=== PATIENT | male | born 1955 | race Caucasian/White ===

== ENCOUNTER 2023-06-11 12:37 | Emergency (ER) | payer MEDICARE, BC ==
[~2023-06-11] VITALS: Ht 172.7 cm; Wt 74.8 kg
[2023-06-11 12:45] VITALS: BP 105/66; PULSE 96; RESP 16; TEMP 98; O2SAT 99
[2023-06-11 14:43] VITALS: BP 102/76; PULSE 85; RESP 18; TEMP 98
[2023-06-11 14:46] VITALS: O2SAT 100
[2023-06-12] MEDS ORDERED: LANS30EC68 PO (12:22)
[2023-06-12] MEDS ORDERED: OXYB10TA2 PO (12:22)
[2023-06-12] MEDS ORDERED: OXYB-118 PO (12:22)
[2023-06-12] MEDS ORDERED: ALFU10TE10 PO (12:22)
[2023-06-12] MEDS ORDERED: TAMS0.4C97 PO (12:22)
[2023-06-12] MEDS ORDERED: ZOLP5TAB7 PO (12:22)
[2023-06-12] MEDS ORDERED: NAPR-1560 PO (12:22)
[2023-06-12] MEDS ORDERED: ARIP30TA12 PO (12:22)
[2023-06-12] MEDS ORDERED: AZIT250T11 PO (12:22)
[2023-06-12] MEDS ORDERED: MIRA25TE PO (12:22)
[2023-06-12] MEDS ORDERED: [UNRECOGNIZED DRUG - CODE] PO (12:22)
[2023-06-12] MEDS ORDERED: DEXA6TAB2 PO (12:22)
[2023-06-12] MEDS ORDERED: PARO20TA13 PO (12:22)
== END 2023-06-11 14:43 | disposition home or self-care (01) ==
LOC: MED 12:37
DX: K94.23 Gastrostomy malfunction (principal); Z98.890 Other specified postprocedural states
CPT/HCPCS: 36600; 43762; 82803; 99284

== ENCOUNTER 2023-06-12 08:39 | Inpatient (IN) | payer BC, MEDICARE ==
[~2023-06-12] VITALS: Ht 175.3 cm; Wt 74.8 kg
[2023-06-12 08:44] VITALS: BP 112/68; PULSE 91; RESP 18; TEMP 98; O2SAT 93
[2023-06-12 09:02] VITALS: O2SAT 93
[2023-06-12 09:29] LABS: BASOPHILS % (AUTO) 0.3 % (0.0-2.0); EOSINOPHILS % (AUTO) 0.1 % (0.0-4.0); HEMATOCRIT 35.1 % (36-52); HEMOGLOBIN 11.3 g/dL (12.0-18.0); LYMPHOCYTES # (AUTO) 0.7 K/uL (2.0-11.5); LYMPHOCYTES % (AUTO) 10.1 % (20.5-51.1); MEAN CORPUSCULAR HEMOGLOBIN 27 pg (27-31); MEAN CORPUSCULAR HGB CONC 32 g/dL (33-37); MEAN CORPUSCULAR VOLUME 83.2 fL (80-94); MONOCYTES # (AUTO) 0.4 K/uL (0.8-1.0); MONOCYTES % (AUTO) 6.1 % (1.7-9.3); NEUTROPHILS # (AUTO) 5.7 K/uL (1.8-7.7); NEUTROPHILS % (AUTO) 83.4 % (42.2-75.2); PLATELET COUNT (AUTO) 164 K/uL (140-450); RED BLOOD CELL COUNT(AUTO) 4.22 MIL/uL (4.20-6.10); RED CELL DISTRIBUTION WIDTH 16.9 % (11.6-13.7); WHITE BLOOD COUNT (AUTO) 6.9 K/uL (4.8-10.8)
[2023-06-12 09:53] LABS: ALANINE AMINOTRANSFERASE 19 U/L (12-78); ALBUMIN 2.2 g/dL (3.4-5.0); ALKALINE PHOSPHATASE 60 U/L (50-136); ANION GAP 12.9 (8-16); ASPARTATE AMINOTRANSFERASE 14 U/L (15-37); CALCIUM 8.7 mg/dL (8.5-10.1); CARBON DIOXIDE 28.4 mmol/L (21-32); CHLORIDE 106 mmol/L (98-107); CREATININE 0.9 mg/dL (0.6-1.3); GFR ARICAN-AMERICAN 109 mL/min (>90); GFR NON ARICAN-AMERICAN 90 mL/min (>90); GLUCOSE 116 mg/dL (74-106); POTASSIUM 4.3 mmol/L (3.5-5.1); SODIUM SERUM 143 mmol/L (136-145); TOTAL BILIRUBIN 1.4 mg/dL (0.0-1.0); UREA NITROGEN, BLOOD 25 mg/dL (7-18)
[2023-06-12 10:04] VITALS: O2SAT 94
[2023-06-12 10:20] LABS: BLOOD GAS HCO3 24.4 mmol/L (22-26); BLOOD GAS O2 SAT% 97.4 % (92.0-98.5); BLOOD GAS PO2 86.7 mmHg (75-100)
[2023-06-12] MEDS ORDERED: AZITHROMYCIN 500 MG in DEXTROSE 5% 250 ML IV ONE (10:55)
[2023-06-12] MEDS ORDERED: cefTRIAXone 1,000 MG VIAL ONE (11:01)
[2023-06-12] MEDS ORDERED: MIRA25TE PO (12:22)
[2023-06-12] MEDS ORDERED: ALFU10TE10 PO (12:22)
[2023-06-12] MEDS ORDERED: ARIP30TA12 PO (12:22)
[2023-06-12] MEDS ORDERED: DEXA6TAB2 PO (12:22)
[2023-06-12] MEDS ORDERED: PARO20TA13 PO (12:22)
[2023-06-12] MEDS ORDERED: OXYB10TA2 PO (12:22)
[2023-06-12] MEDS ORDERED: LANS30EC68 PO (12:22)
[2023-06-12] MEDS ORDERED: AZIT250T11 PO (12:22)
[2023-06-12] MEDS ORDERED: NAPR-1560 PO (12:22)
[2023-06-12] MEDS ORDERED: ZOLP5TAB7 PO (12:22)
[2023-06-12] MEDS ORDERED: [UNRECOGNIZED DRUG - CODE] PO (12:22)
[2023-06-12] MEDS ORDERED: OXYB-118 PO (12:22)
[2023-06-12] MEDS ORDERED: TAMS0.4C97 PO (12:22)
[2023-06-12] MEDS ORDERED: HYDROcodone/APAP 7.5/325 MG 1 TAB PO PRN (12:35)
[2023-06-12] MEDS ORDERED: ONDANSETRON 4 MG/2 ML VIAL IVP PRN (12:35)
[2023-06-12] MEDS ORDERED: NACL 0.9% 1,000 ML IV SCH (12:35)
[2023-06-12] MEDS ORDERED: ZOLPIDEM 5 MG TAB PO PRN (12:35)
[2023-06-12] MEDS ORDERED: ACETAMINOPHEN 650 MG/20.3 ML UDC PO PRN (12:45)
[2023-06-12] MEDS ORDERED: AZITHROMYCIN 500 MG INJ VIAL IV ONE (13:27)
[2023-06-12 14:00] LABS: INR 1.16 (0.8-1.2); PARTIAL THROMBOPLASTIN TIME 27.6 secs (22-35.6); PROTHROMBIN TIME 12.1 secs (10.8-13.4)
[2023-06-12 14:08] LABS: LACTIC ACID 1.1 mmol/L (0.4-2.0)
[2023-06-12 20:02] LABS: CHOL/HDL RATIO 3.6 (1-4.5); FREE T4 (FREE THYROXINE) 1.02 ng/dL (0.76-1.46); THYROID STIMULATING HORMONE 0.49 uIU/mL (0.34-3.74)
[2023-06-12] MEDS ORDERED: MIDODRINE 5 MG TAB PO ONE (21:05)
[2023-06-12] MEDS ORDERED: MIDODRINE 5 MG TAB ONE (21:14)
[2023-06-12] MEDS: DOCUSATE 100 MG/10 ML UDC PO SCH (21:18)
[2023-06-12] MEDS: NAPROXEN 500 MG TAB PO SCH (22:40)
[2023-06-13 08:07] LABS: BASOPHILS % (AUTO) 0.5 % (0.0-2.0); EOSINOPHILS # (AUTO) 0.1 K/uL (0-0.4); EOSINOPHILS % (AUTO) 1.4 % (0.0-4.0); HEMATOCRIT 28.9 % (36-52); HEMOGLOBIN 9.3 g/dL (12.0-18.0); LYMPHOCYTES # (AUTO) 1.2 K/uL (2.0-11.5); LYMPHOCYTES % (AUTO) 20.3 % (20.5-51.1); MEAN CORPUSCULAR HEMOGLOBIN 27 pg (27-31); MEAN CORPUSCULAR HGB CONC 32 g/dL (33-37); MEAN CORPUSCULAR VOLUME 83.9 fL (80-94); MONOCYTES # (AUTO) 0.5 K/uL (0.8-1.0); MONOCYTES % (AUTO) 8.4 % (1.7-9.3); NEUTROPHILS % (AUTO) 69.4 % (42.2-75.2); PLATELET COUNT (AUTO) 129 K/uL (140-450); RED BLOOD CELL COUNT(AUTO) 3.44 MIL/uL (4.20-6.10); RED CELL DISTRIBUTION WIDTH 16.3 % (11.6-13.7); WHITE BLOOD COUNT (AUTO) 5.7 K/uL (4.8-10.8)
[2023-06-13] MEDS ORDERED: DEXT 5% / NACL 0.9% 1,000 ML IV ONE (08:20)
[2023-06-13 08:33] LABS: ANION GAP 12.2 (8-16); CALCIUM 8.1 mg/dL (8.5-10.1); CARBON DIOXIDE 27.7 mmol/L (21-32); CREATININE 0.7 mg/dL (0.6-1.3); POTASSIUM 3.9 mmol/L (3.5-5.1)
[2023-06-13 08:39] LABS: MAGNESIUM 2.3 mg/dL (1.8-2.4); PHOSPHORUS 3.5 mg/dL (2.5-4.9)
[2023-06-13] MEDS ORDERED: ARIPIPRAZOLE PO SCH (09:00)
[2023-06-13] MEDS ORDERED: LANSOPRAZOLE 30 MG CAPDR PO SCH (09:00)
[2023-06-13] MEDS: AZITHROMYCIN 250 MG TAB PO SCH ×2 (09:00→10:41)
[2023-06-13] MEDS ORDERED: NON-FORMULARY ITEM (Mirabegron (Myrbetriq) 1 TAB) PO SCH (09:00)
[2023-06-13] MEDS: TAMSULOSIN 0.4 MG CAP PO SCH ×3 (09:00→10:52)
[2023-06-13] MEDS: NAPROXEN 500 MG TAB PO SCH ×3 (09:00→10:49)
[2023-06-13] MEDS ORDERED: OXYBUTYNIN CHLORIDE PO SCH (09:00)
[2023-06-13] MEDS: DOCUSATE 100 MG/10 ML UDC PO SCH ×3 (09:00→10:50)
[2023-06-13] MEDS: OXYBUTYNIN 5 MG TAB PO SCH ×3 (09:00→10:51)
[2023-06-13] MEDS: PARoxetine 20 MG TAB PO SCH ×2 (09:00→10:42)
[2023-06-13] MEDS ORDERED: NON-FORMULARY ITEM (Alfuzosin HCl (Alfuzosin HCl ER) 1 TAB) PO SCH (09:00)
[2023-06-13] MEDS: ARIPiprazole 10 MG TAB PO SCH ×3 (09:00→10:51)
[2023-06-13] MEDS ORDERED: cefTRIAXone 1,000 MG VIAL ONE ×2 (09:09→10:11)
[2023-06-13] MEDS: PANTOPRAZOLE 40 MG INJ VIAL IVP SCH (10:36)
[2023-06-13 12:00] VITALS: PULSE 54; RESP 18; TEMP 98; O2SAT 96
[2023-06-13 13:14] LABS: APPEARANCE,URINE CLEAR (CLEAR); BILIRUBIN,URINE 1+ (NEGATIVE); BLOOD, URINE 3+ (NEGATIVE); COLOR,URINE YELLOW (YELLOW); LEUKOCYTE ESTERASE ,URINE NEGATIVE (NEGATIVE); NITRITE, URINE NEGATIVE (NEGATIVE); PROTEIN,URINE 2+ (NEGATIVE); UGLUCOSE TRACE (NEGATIVE); UROBILINOGEN,URINE >=8.0 EU/dL (0.2 - 1)
[2023-06-13 13:35] LABS: BACTERIA,URINE 2+ /HPF (None Seen); ICTOTEST NEGATIVE (NEGATIVE); RBC,URINE 50-80 /HPF (0-5); SQUAMOUS EPITHELIAL CELL,UR 4-10 (MOD) /LPF (0-3 (FEW)); WBC,URINE 0-5 /HPF (0-5)
[2023-06-13 13:36] LABS: AMPHETAMINE, URINE NEGATIVE ng/ml (NEG <=1000); BARBITURATE, URINE NEGATIVE ng/ml (NEG <=200); BENZODIAZEPINE, URINE NEGATIVE ng/mL (NEG <=200); CANNABINOID, URINE NEGATIVE ng/mL (NEG <=50); COCAINE, URINE NEGATIVE ng/mL (NEG <=300); OPIATE, URINE NEGATIVE ng/mL (NEG <=2000); PHENCYCLIDINE SCREEN,URINE NEGATIVE ng/mL (NEG <=25)
[2023-06-13 16:00] VITALS: PULSE 58; PULSE 61; RESP 18; TEMP 97.8; O2SAT 94
[2023-06-13 20:00] VITALS: PULSE 17; PULSE 65; RESP 17; TEMP 97.3; O2SAT 94
[2023-06-14] VITALS (8 sets, daily range): BP systolic 109–128; BP diastolic 58–68; PULSE 17–74; RESP 17–20; TEMP 96.7–98; O2SAT 94–96
[2023-06-14 05:59] LABS: BASOPHILS % (AUTO) 0.2 % (0.0-2.0); EOSINOPHILS # (AUTO) 0.1 K/uL (0-0.4); EOSINOPHILS % (AUTO) 1.2 % (0.0-4.0); HEMATOCRIT 29.3 % (36-52); HEMOGLOBIN 9.4 g/dL (12.0-18.0); LYMPHOCYTES # (AUTO) 1.3 K/uL (2.0-11.5); LYMPHOCYTES % (AUTO) 16.3 % (20.5-51.1); MEAN CORPUSCULAR HEMOGLOBIN 27 pg (27-31); MEAN CORPUSCULAR HGB CONC 32 g/dL (33-37); MEAN CORPUSCULAR VOLUME 84.1 fL (80-94); MONOCYTES # (AUTO) 0.5 K/uL (0.8-1.0); MONOCYTES % (AUTO) 5.7 % (1.7-9.3); NEUTROPHILS # (AUTO) 6.1 K/uL (1.8-7.7); NEUTROPHILS % (AUTO) 76.6 % (42.2-75.2); PLATELET COUNT (AUTO) 136 K/uL (140-450); RED BLOOD CELL COUNT(AUTO) 3.48 MIL/uL (4.20-6.10); RED CELL DISTRIBUTION WIDTH 16.4 % (11.6-13.7)
[2023-06-14 06:30] LABS: MAGNESIUM 2.1 mg/dL (1.8-2.4); PHOSPHORUS 3.8 mg/dL (2.5-4.9)
[2023-06-14 06:33] LABS: ANION GAP 14.5 (8-16); CALCIUM 8.9 mg/dL (8.5-10.1); CARBON DIOXIDE 26.1 mmol/L (21-32); CREATININE 0.7 mg/dL (0.6-1.3); POTASSIUM 3.6 mmol/L (3.5-5.1)
[2023-06-14] MEDS: DOCUSATE 100 MG/10 ML UDC PO SCH ×2 (09:40→21:22)
[2023-06-14] MEDS: AZITHROMYCIN 250 MG TAB PO SCH (09:41)
[2023-06-14] MEDS: NAPROXEN 500 MG TAB PO SCH ×2 (09:41→21:21)
[2023-06-14] MEDS: PARoxetine 20 MG TAB PO SCH (09:41)
[2023-06-14] MEDS: PANTOPRAZOLE 40 MG INJ VIAL IVP SCH (09:41)
[2023-06-14] MEDS: DEXT 5% /NACL 0.9% 1,000 ML IV SCH (22:13)
[2023-06-15] VITALS (8 sets, daily range): BP systolic 102–129; BP diastolic 59–85; PULSE 59–85; RESP 16–20; TEMP 97–98.2; O2SAT 95–98
[2023-06-15 05:53] LABS: BASOPHILS % (AUTO) 0.2 % (0.0-2.0); EOSINOPHILS # (AUTO) 0.1 K/uL (0-0.4); EOSINOPHILS % (AUTO) 1.4 % (0.0-4.0); HEMOGLOBIN 9.1 g/dL (12.0-18.0); LYMPHOCYTES # (AUTO) 1.4 K/uL (2.0-11.5); MEAN CORPUSCULAR HEMOGLOBIN 27 pg (27-31); MEAN CORPUSCULAR HGB CONC 32 g/dL (33-37); MEAN CORPUSCULAR VOLUME 83.9 fL (80-94); MONOCYTES # (AUTO) 0.6 K/uL (0.8-1.0); MONOCYTES % (AUTO) 6.9 % (1.7-9.3); NEUTROPHILS # (AUTO) 5.9 K/uL (1.8-7.7); NEUTROPHILS % (AUTO) 74.5 % (42.2-75.2); PLATELET COUNT (AUTO) 134 K/uL (140-450); RED BLOOD CELL COUNT(AUTO) 3.34 MIL/uL (4.20-6.10); RED CELL DISTRIBUTION WIDTH 16.1 % (11.6-13.7)
[2023-06-15 06:39] LABS: PHOSPHORUS 3.8 mg/dL (2.5-4.9)
[2023-06-15 06:56] LABS: ANION GAP 13.5 (8-16); CALCIUM 8.2 mg/dL (8.5-10.1); CREATININE 0.6 mg/dL (0.6-1.3); POTASSIUM 3.5 mmol/L (3.5-5.1)
[2023-06-15] MEDS: NAPROXEN 500 MG TAB PO SCH ×2 (09:46→20:33)
[2023-06-15] MEDS: OXYBUTYNIN 5 MG TAB PO SCH (09:46)
[2023-06-15] MEDS: DOCUSATE 100 MG/10 ML UDC PO SCH ×2 (09:46→20:33)
[2023-06-15] MEDS: TAMSULOSIN 0.4 MG CAP PO SCH (09:46)
[2023-06-15] MEDS: PARoxetine 20 MG TAB PO SCH (09:50)
[2023-06-15] MEDS: PANTOPRAZOLE 40 MG INJ VIAL IVP SCH (09:50)
[2023-06-15] MEDS: AZITHROMYCIN 250 MG TAB PO SCH (09:50)
[2023-06-15] MEDS: ARIPiprazole 10 MG TAB PO SCH (09:51)
[2023-06-15] MEDS: DEXT 5% /NACL 0.9% 1,000 ML IV SCH (12:31)
[2023-06-16] MEDS: DEXT 5% /NACL 0.9% 1,000 ML IV SCH ×2 (02:52→15:57)
[2023-06-16 07:13] LABS: ANION GAP 10.7 (8-16); CALCIUM 8.6 mg/dL (8.5-10.1); CARBON DIOXIDE 27.8 mmol/L (21-32); CREATININE 0.7 mg/dL (0.6-1.3); POTASSIUM 3.5 mmol/L (3.5-5.1)
[2023-06-16 07:32] LABS: MAGNESIUM 1.9 mg/dL (1.8-2.4); PHOSPHORUS 3.2 mg/dL (2.5-4.9)
[2023-06-16 07:48] VITALS: PULSE 62; RESP 19; O2SAT 99
[2023-06-16 07:49] VITALS: PULSE 63; RESP 19; O2SAT 99
[2023-06-16 07:50] VITALS: TEMP 97.8
[2023-06-16 08:00] VITALS: BP 111/59; PULSE 54; RESP 18; TEMP 97.8; O2SAT 95
[2023-06-16 08:48] LABS: BASOPHILS % (AUTO) 0.5 % (0.0-2.0); EOSINOPHILS # (AUTO) 0.1 K/uL (0-0.4); EOSINOPHILS % (AUTO) 1.9 % (0.0-4.0); LYMPHOCYTES # (AUTO) 1.2 K/uL (2.0-11.5); MEAN CORPUSCULAR HEMOGLOBIN 27 pg (27-31); MEAN CORPUSCULAR HGB CONC 32 g/dL (33-37); MEAN CORPUSCULAR VOLUME 83.6 fL (80-94); MONOCYTES # (AUTO) 0.4 K/uL (0.8-1.0); MONOCYTES % (AUTO) 5.6 % (1.7-9.3); NEUTROPHILS # (AUTO) 6.1 K/uL (1.8-7.7); PLATELET COUNT (AUTO) 124 K/uL (140-450); RED BLOOD CELL COUNT(AUTO) 3.35 MIL/uL (4.20-6.10); RED CELL DISTRIBUTION WIDTH 16.2 % (11.6-13.7); WHITE BLOOD COUNT (AUTO) 7.9 K/uL (4.8-10.8)
[2023-06-16] MEDS: AZITHROMYCIN 250 MG TAB PO SCH (09:52)
[2023-06-16] MEDS: PARoxetine 20 MG TAB PO SCH (09:53)
[2023-06-16] MEDS: TAMSULOSIN 0.4 MG CAP PO SCH (09:53)
[2023-06-16] MEDS: ARIPiprazole 10 MG TAB PO SCH (09:53)
[2023-06-16] MEDS: DOCUSATE 100 MG/10 ML UDC PO SCH ×2 (09:53→20:18)
[2023-06-16] MEDS: PANTOPRAZOLE 40 MG INJ VIAL IVP SCH (09:54)
[2023-06-16] MEDS: NAPROXEN 500 MG TAB PO SCH ×2 (09:54→20:18)
[2023-06-16] MEDS: OXYBUTYNIN 5 MG TAB PO SCH (09:56)
[2023-06-16 16:00] VITALS: BP 111/57; PULSE 55; RESP 18; TEMP 97.3; O2SAT 95
[2023-06-16 20:00] VITALS: PULSE 57; RESP 16; RESP 18; TEMP 97.1; O2SAT 95
[2023-06-17] VITALS (7 sets, daily range): BP systolic 96–100; BP diastolic 57–60; PULSE 57–60; RESP 17–19; TEMP 96.2–98.2; O2SAT 95–99
[2023-06-17] MEDS: DEXT 5% /NACL 0.9% 1,000 ML IV SCH ×2 (06:56→20:53)
[2023-06-17 07:16] LABS: BASOPHILS # (AUTO) 0.1 K/uL (0.00-0.22); EOSINOPHILS # (AUTO) 0.2 K/uL (0-0.4); EOSINOPHILS % (AUTO) 2.6 % (0.0-4.0); HEMOGLOBIN 9.7 g/dL (12.0-18.0); LYMPHOCYTES # (AUTO) 1.4 K/uL (2.0-11.5); LYMPHOCYTES % (AUTO) 20.6 % (20.5-51.1); MEAN CORPUSCULAR HEMOGLOBIN 27 pg (27-31); MEAN CORPUSCULAR HGB CONC 32 g/dL (33-37); MEAN CORPUSCULAR VOLUME 84.6 fL (80-94); MONOCYTES # (AUTO) 0.4 K/uL (0.8-1.0); MONOCYTES % (AUTO) 5.6 % (1.7-9.3); NEUTROPHILS # (AUTO) 4.9 K/uL (1.8-7.7); NEUTROPHILS % (AUTO) 70.2 % (42.2-75.2); PLATELET COUNT (AUTO) 127 K/uL (140-450); RED BLOOD CELL COUNT(AUTO) 3.54 MIL/uL (4.20-6.10); RED CELL DISTRIBUTION WIDTH 16.1 % (11.6-13.7)
[2023-06-17 07:55] LABS: MAGNESIUM 1.8 mg/dL (1.8-2.4); PHOSPHORUS 3.2 mg/dL (2.5-4.9)
[2023-06-17 08:00] LABS: ANION GAP 11.9 (8-16); CALCIUM 8.2 mg/dL (8.5-10.1); CARBON DIOXIDE 24.4 mmol/L (21-32); CREATININE 0.6 mg/dL (0.6-1.3); POTASSIUM 3.3 mmol/L (3.5-5.1)
[2023-06-17] MEDS: PANTOPRAZOLE 40 MG INJ VIAL IVP SCH (09:00)
[2023-06-17] MEDS ORDERED: POTASSIUM CHLORIDE 20% 40 MEQ/15 ML UDC GT SCH (10:40)
[2023-06-17] MEDS: TAMSULOSIN 0.4 MG CAP PO SCH (14:04)
[2023-06-17] MEDS: ARIPiprazole 10 MG TAB PO SCH (14:05)
[2023-06-17] MEDS: NAPROXEN 500 MG TAB PO SCH ×2 (14:05→20:51)
[2023-06-17] MEDS: PARoxetine 20 MG TAB PO SCH (14:05)
[2023-06-17] MEDS: AZITHROMYCIN 250 MG TAB PO SCH (14:05)
[2023-06-17] MEDS: DOCUSATE 100 MG/10 ML UDC PO SCH ×2 (14:05→20:50)
[2023-06-17] MEDS: OXYBUTYNIN 5 MG TAB PO SCH (14:06)
[2023-06-18] VITALS: BP 100/60; PULSE 60; RESP 18; TEMP 97.1; O2SAT 95
[2023-06-18 05:42] LABS: BASOPHILS # (AUTO) 0.1 K/uL (0.00-0.22); BASOPHILS % (AUTO) 1.2 % (0.0-2.0); EOSINOPHILS # (AUTO) 0.3 K/uL (0-0.4); EOSINOPHILS % (AUTO) 4.6 % (0.0-4.0); HEMATOCRIT 27.8 % (36-52); LYMPHOCYTES # (AUTO) 1.4 K/uL (2.0-11.5); LYMPHOCYTES % (AUTO) 21.6 % (20.5-51.1); MEAN CORPUSCULAR HEMOGLOBIN 27 pg (27-31); MEAN CORPUSCULAR HGB CONC 32 g/dL (33-37); MEAN CORPUSCULAR VOLUME 83.6 fL (80-94); MONOCYTES # (AUTO) 0.2 K/uL (0.8-1.0); NEUTROPHILS # (AUTO) 4.3 K/uL (1.8-7.7); NEUTROPHILS % (AUTO) 68.6 % (42.2-75.2); PLATELET COUNT (AUTO) 138 K/uL (140-450); RED BLOOD CELL COUNT(AUTO) 3.32 MIL/uL (4.20-6.10); RED CELL DISTRIBUTION WIDTH 15.9 % (11.6-13.7); WHITE BLOOD COUNT (AUTO) 6.3 K/uL (4.8-10.8)
[2023-06-18 06:07] LABS: CALCIUM 8.3 mg/dL (8.5-10.1); CARBON DIOXIDE 27.5 mmol/L (21-32); CREATININE 0.6 mg/dL (0.6-1.3); POTASSIUM 3.5 mmol/L (3.5-5.1)
[2023-06-18 08:00] VITALS: BP 113/61; PULSE 60; PULSE 62; RESP 18; RESP 20; TEMP 97.1; TEMP 97.9; O2SAT 95; O2SAT 96; O2SAT 99
[2023-06-18] MEDS ORDERED: LEVO-481 PO (10:39)
[2023-06-18] MEDS: PANTOPRAZOLE 40 MG INJ VIAL IVP SCH (10:43)
[2023-06-18] MEDS: PARoxetine 20 MG TAB PO SCH (10:44)
[2023-06-18] MEDS: ARIPiprazole 10 MG TAB PO SCH (10:44)
[2023-06-18] MEDS: TAMSULOSIN 0.4 MG CAP PO SCH (10:44)
[2023-06-18] MEDS: OXYBUTYNIN 5 MG TAB PO SCH (10:44)
[2023-06-18] MEDS: NAPROXEN 500 MG TAB PO SCH (10:45)
[2023-06-18] MEDS: DOCUSATE 100 MG/10 ML UDC PO SCH (10:45)
[2023-06-18] MEDS: DEXT 5% /NACL 0.9% 1,000 ML IV SCH (14:43)
== END 2023-06-18 17:00 | disposition home or self-care (01) | DRG 252 ==
LOC: MED 08:39 → MTU 12:18
PROC: 0D20XUZ Change Feeding Device in Upper Intestinal Tract, External Approach (ICD-10-PCS; principal; 2023-06-18)
DX: K94.23 Gastrostomy malfunction (principal); J96.21 Acute and chronic respiratory failure with hypoxia; J69.0 Pneumonitis due to inhalation of food and vomit; E46 Unspecified protein-calorie malnutrition; K22.2 Esophageal obstruction; C18.9 Malignant neoplasm of colon, unspecified; D64.9 Anemia, unspecified; Z20.822 Contact with and (suspected) exposure to COVID-19; I10 Essential (primary) hypertension; Y83.3 Surgical operation with formation of external stoma as the cause of abnormal reaction of the patient, or of later complication, without mention of misadventure at the time of the procedure; J96.22 Acute and chronic respiratory failure with hypercapnia; F39 Unspecified mood [affective] disorder; K21.9 Gastro-esophageal reflux disease without esophagitis; N40.0 Benign prostatic hyperplasia without lower urinary tract symptoms; Z68.24 Body mass index [BMI] 24.0-24.9, adult; Z79.899 Other long term (current) drug therapy; Y92.89 Other specified places as the place of occurrence of the external cause; Z85.01 Personal history of malignant neoplasm of esophagus
CPT/HCPCS: 36415; 36600; 71045; 71275; 80048; 80053; 80305; 81001; 82140; 82150; 82803; 82948; 83036; 83605; 83690; 83735; 83880; 84100; 84439; 84443; 84484; 85025; 85379; 85610; 85730; 87040; 87081; 87086; 93005; 96365; 96372; 96375; 97112; 97116; 97530; 99291; C9113; J0456; J0696; J7060; Q9967